=== PATIENT | female | born 1990 | race Caucasian/White ===

== ENCOUNTER 2022-02-15 18:25 | Emergency (ER) | payer SELFPAY ==
[~2022-02-15] VITALS: Ht 160 cm; Wt 82.0 kg
[2022-02-15] MEDS ORDERED: ACETAMINOPHEN 325MG TABLET PO ONE (19:00)
[2022-02-15] MEDS ORDERED: TOPUD PO (20:34)
[2022-02-15] MEDS ORDERED: IBUP-2028 MT (20:34)
[2022-02-15] MEDS ORDERED: IBUPROFEN 400MG TABLET PO ONE (20:45)
[2022-02-15 20:46] VITALS: BP 92/50
== END 2022-02-15 20:47 ==
LOC: ER 18:25
DX: S00.81XA Abrasion of other part of head, initial encounter (principal); X58.XXXA Exposure to other specified factors, initial encounter; Y93.89 Activity, other specified; Y92.89 Other specified places as the place of occurrence of the external cause; Y99.8 Other external cause status; Z98.890 Other specified postprocedural states
CPT/HCPCS: 70486; 81025; 99284